=== PATIENT | female | born 1975 | race African-American/Black ===

== ENCOUNTER 2016-10-18 19:49 | Emergency (ER) | payer MEDICAID, OTHER ==
[~2016-10-18] VITALS: Ht 160 cm; Wt 80.7 kg
[~2016-10-18 19:49] MED LIST: NORCO 5-325 TA1 EACH ORAL
[2016-10-18] MEDS ORDERED: AMOXICILLIN500 MG ORAL (20:29)
[2016-10-18 20:53] VITALS: BP_SYST 124; BP_SYST 127; BP_DIAS 81; BP_DIAS 84
--- NOTE | 2016-10-23 07:05 | Emergency Room Report ---
History of Present Illness General Chief Complaint: Flu Like Symptoms Source: Patient Present Illness HPI 41-year-old female presents ED complaining of sore throat x3 days. States pain is 7/10, throbbing. Nonradiating. Notes dry cough. Denies fevers or chills. Denies sick contacts or recent travel. No other aggravating or relieving factors. Denies any other associated symptoms Allergies: Coded Allergies: No Known Allergies (Verified Allergy, Unknown, 02/22/08) Patient History Past Medical History: none Past Surgical History: none Pertinent Family History: none Social History: Denies: alcohol use, drug use, smoking Last Menstrual Period: END August Now: No : 3 Immunizations: UTD Reviewed Nursing Documentation: PMH: Agreed, PSxH: Agreed Review of Systems All Other Systems: negative except mentioned in HPI Physical Exam Vital Signs Date Time Temp Pulse Resp B/P Pulse Ox O2 Delivery O2 Flow Rate FiO2 10/18/16 19:55 99.0 97 18 127/84 93 Room Air Sp02 EP Interpretation: reviewed, normal General Appearance: no apparent distress, alert, GCS 15, non-toxic Head: normocephalic Eyes: bilateral eye PERRL, bilateral eye normal inspection ENT: hearing grossly normal, no angioedema, normal voice, TMs + canals normal, pharyngeal erythema Neck: full range of motion, no bony tend, supple/symm/no masses Respiratory: chest non-tender, lungs clear, normal breath sounds, speaking full sentences Cardiovascular #1: normal inspection Gastrointestinal: normal inspection Rectal: deferred Genitourinary: no CVA tenderness Musculoskeletal: normal inspection Neurologic: alert, oriented x3, responsive, motor strength/tone normal, sensory intact, speech normal Psychiatric: normal inspection Skin: normal inspection Lymphatic: normal inspection Medical Decision Making Diagnostic Impression: Primary Impression: Pharyngitis Qualified Codes: J02.9 - Acute pharyngitis, unspecified ER Course Hospital Course 41-year-old female presents to ED complaining of sore throat + cough Differential diagnoses include: URI, pharyngitis, otitis media Clinical course Patient placed on stretcher. After initial history, physical exam reveals a female in no acute distress. Bilateral TM unremarkable. There is pharyngeal erythema w/o tonsillar exudates. No lymphadenopathy. Clinical findings consistent with pharyngitis. Reassurance given Diagnosis - pharyngitis Stable and discharged home with prescriptions for amoxicillin. Instructed to followup with PMD. return to ED if symptoms recur or worsen Last Vital Signs Date Time Temp Pulse Resp B/P Pulse Ox O2 Delivery O2 Flow Rate FiO2 10/18/16 20:53 99.0 16 127/84 93 Room Air 10/18/16 20:53 94 Status: improved Disposition: HOME, SELF-CARE Condition: Stable Scripts Amoxicillin* (AMOXIL*) 500 Mg Capsule 500 MG ORAL THREE TIMES A DAY, #21 CAP Prov: ADAM CESPEDES M.D. 10/18/16 Referrals: NON PHYSICIAN (PCP) Patient Instructions: Pharyngitis, [id number] ADAM CESPEDES M.D. Oct 23, 2016 07:05
== END 2016-10-18 20:54 | disposition home or self-care (01) ==
LOC: EMR 20:35
DX: J02.9 Acute pharyngitis, unspecified (principal); R05 Cough
CPT/HCPCS: 99283

== ENCOUNTER 2017-01-05 14:32 | Emergency (ER) | payer SELFPAY ==
[~2017-01-05] VITALS: Ht 160 cm; Wt 76.2 kg
[~2017-01-05 14:32] MED LIST changes: +AMOXICILLIN500 MG ORAL
[2017-01-05] MEDS ORDERED: NKM (14:45)
[2017-01-05] MEDS ORDERED: CYCLOBENZAPRINE10 MG ORAL (15:04)
[2017-01-05] MEDS ORDERED: NORCO 5-325 TA1 EACH ORAL (15:04)
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
[2017-01-05 15:09] VITALS: BP 114/72
== END 2017-01-05 15:15 | disposition home or self-care (01) ==
LOC: EMR 15:05
DX: M54.42 Lumbago with sciatica, left side (principal)
CPT/HCPCS: 99284